=== PATIENT | female | born 1940 | race Caucasian/White ===

== ENCOUNTER 2016-09-11 04:48 | Emergency (ER) | payer MEDICARE, BC ==
--- NOTE | 2016-09-13 13:01 | ER ---
ADMIT: 09/11/2016 RM/LOC: [facility] MR#: [id number] [id number] [place], [place] [id number] [address] [place] [address] Emergency Room Report SEX: F AGE: 76 : 1940 DATE: 09/11/2016 HISTORY OF PRESENT ILLNESS: The patient is a 76-year-old female with a past medical history of diabetes and hypertension, came to the ER with chief complaint of vertigo, nausea, and headaches. The patient states she woke up at 2:30 a.m., and she noticed she had vertigo and some balance problems and she should hold the wall while walking and the room spins around her and also noticed she has some mild headaches in the frontal area and she is nauseous too. The patient denies similar symptoms in the past. The patient denies any ear pain, any new decrease in hearing, any ear discharge, any tinnitus. The patient also denied any visual changes or any neck pain or neck stiffness or fever or any recent trauma. PHYSICAL EXAMINATION: GENERAL: The patient was sitting in the bed. The patient was in moderate distress, but was alert and oriented. VITAL SIGNS: Blood pressure was 109/88, pulse was 70, with respiratory rate of 16, and temperature of 97.4. HEENT/NECK: Pupils are 3 mm, reactive to light with normal extraocular movements. The patient had normal visual calvin. The patient did not have any nystagmus, I did the Branchland-Hallpike, which was also negative. In the ears, TMs are normal bilaterally. Grossly hearing exam was normal. There was no meningismus. NEUROLOGICAL: Motor and sensory and cerebellar tests were grossly normal. Cranial nerves were grossly normal. Gait was slightly slow, and the patient had disequilibrium. CHEST: Lungs were clear bilaterally. HEART: Normal S1, S2, without any gallops. ABDOMEN: Soft. EXTREMITIES: I did not see any swelling in the extremities and there is no tenderness. ADMIT: 09/11/2016 RM/LOC: [facility] MR#: [id number] [address] [id number] [address] [place] [address] Emergency Room Report SEX: F AGE: 76 : 1940 EMERGENCY ROOM COURSE: CT of the head was negative for any acute changes. The patient received Zofran IV and also Reglan and Benadryl IV too. The patient received half a liter bolus of normal saline. The patient was rechecked, the symptoms had been resolved. At this stage considering the presentation, vertigo most probably because of the peripheral vertigo causes are at the top of differentials and vestibular neuritis is our #1 differential. The patient was discharged to home with return precautions, prescription for Zofran and meclizine and advised to follow up with the primary care doctor. The patient was given return precautions, and she acknowledged she understood the plan and agreed with it. The patient is stable for discharge to home. Rafy Mcghee MD/ abel JOB #: [id number] CC: Rafy Mcghee MD, Attending Physician Malik Peralta MD, Family Physician
== END 2016-09-11 06:45 | disposition home or self-care (01) ==
LOC: ER 04:48
DX: R42 Dizziness and giddiness (principal); H93.3X9 Disorders of unspecified acoustic nerve; E11.9 Type 2 diabetes mellitus without complications; I10 Essential (primary) hypertension